=== PATIENT | male | born 1960 | race Caucasian/White ===

== ENCOUNTER 2016-12-17 04:21 | Emergency (ER) | payer BC, OTHER ==
[~2016-12-17] VITALS: Ht 180.3 cm; Wt 94.3 kg
[2016-12-17] MEDS ORDERED: DILTIAZEM 25 MG/5 ML (CARDIZEM) VIAL IV ONE (04:30)
[2016-12-17] MEDS ORDERED: SODIUM CHLORIDE 250 ML IV SCH ×2 (04:35→05:10)
[2016-12-17 05:01] LABS: BASOPHILS % (AUTO) 1 % (0-2); EOSINOPHILS # (AUTO) 0.3 10^3uL; EOSINOPHILS % (AUTO) 3 % (0-4); LYMPHOCYTES # (AUTO) 3.6 X10^3; MEAN CORPUSCULAR HEMOGLOBIN 30.2 PG (26.0-34.0); MEAN CORPUSCULAR HGB CONC 34.4 g/dL (31.0-37.0); MEAN CORPUSCULAR VOLUME 88 FL (80-100); MEAN PLATELET VOLUME 11.4 FL (6.0-9.5); MONOCYTES # (AUTO) 1.4 X10^3; MONOCYTES % (AUTO) 14 % (3-11); NEUTROPHILS # (AUTO) 4.6 X10^3; NEUTROPHILS % (AUTO) 46 % (51-67); PLATELET COUNT 200 10^3uL (150-450); WHITE BLOOD COUNT 9.92 10^3uL (4.0-11.0)
--- NOTE | 2016-12-17 05:05 | NUR ---
Patient in room resting, pulse rate is now running in the 80's.
[2016-12-17 05:15] LABS: ALBUMIN 4.5 g/dL (3.4-5.0); ALKALINE PHOSPHATASE 111 U/L (38-126); ANION GAP 18.2 MEQ/L (3-15); BUN/CREATININE RATIO 16 (10-20); CALCULATED IONIZED CALCIUM 3.9 mg/dL (3.8-4.6); TOTAL PROTEIN 8.2 g/dL (6.4-8.5)
[2016-12-17 05:30] LABS: CREATINE KINASE 279 U/L (55-170)
[2016-12-17] MEDS ORDERED: APIXABAN 2.5 MG (ELIQUIS) TABLET PO ONE (06:25)
[2016-12-17] MEDS ORDERED: DILTIAZEM 60 MG (CARDIZEM) TAB PO ONE (06:25)
--- NOTE | 2016-12-17 07:12 | NUR ---
Report received from Ana OSBORN
--- NOTE | 2016-12-17 07:25 | NUR ---
Patient denies chest pain or other complaints. Given water to drink.
[2016-12-17 09:06] VITALS: BP 103/79
== END 2016-12-17 08:45 | disposition home or self-care (01) ==
LOC: ED 04:23
DX: I48.0 Paroxysmal atrial fibrillation (principal)
CPT/HCPCS: 36415; 71010; 80053; 82550; 82553; 83880; 84484; 85025; 85610; 85730; 93005; 96374; 99285; J7050; 93010

== ENCOUNTER → 2017-01-13 | Outpatient (CLI) | payer BC, OTHER | LOC: RT 10:37 | PROVIDERS: ATTEND Internal Medicine | DX: I48.91 Unspecified atrial fibrillation (principal) | CPT/HCPCS: 93005 ==